=== PATIENT | female | born 1950 | race Caucasian/White ===

== ENCOUNTER 2024-10-18 06:02 | Day surgery (SDC) | payer MEDICARE, OTHER ==
[2024-10-18] MEDS: Lactated Ringers 1,000 ML IV SCH (06:36)
[2024-10-18 06:54] VITALS: RESP 16
[2024-10-18 07:41] LABS: ANION GAP 13.9 MEQ/L (5-15); Calcium 9.6 mg/dL (8.4-10.2); Creatinine 1 0.72 mg/dL (0.52-1.04); EST GLOMERULAR FILTRATION RATE 86.6 ML/MIN; Potassium 3.9 mmol/L (3.5-5.1)
[2024-10-18] MEDS ORDERED: propofoL IV ONE ×2 (07:57→08:25)
[2024-10-18 09:25] VITALS: BP 138/75; PULSE 67; TEMP 97.2; O2SAT 96
--- NOTE | 2024-10-19 13:23 | OP ---
SURGERY DATE/TIME: 10/18/2024 [id number] PROCEDURE PERFORMED: Colonoscopy. PREOPERATIVE DIAGNOSIS: Screening colonoscopy. POSTOPERATIVE DIAGNOSES: 1) Colon polyps x2. 2) Diverticulosis. ANESTHESIA: MAC by Adán Brandt CRNA. ESTIMATED BLOOD LOSS: Minimal. SPECIMENS: Two hot forceps polypectomies, one from the sigmoid colon and one from the rectum. DESCRIPTION OF PROCEDURE: After informed written consent was obtained, the patient was taken to the endoscopy suite. She was placed in the left lateral decubitus position, and anesthesia was titrated to the desired level of consciousness. Digital rectal exam showed external hemorrhoids. No internal lesions. Normal sphincter tone. Scope was inserted into the rectum, and sequentially, the entire colonic mucosa was traversed. The level of the cecum was reached and verified under direct visualization of the ileocecal valve. Upon withdrawal, careful mucosal inspection revealed no gross abnormalities other than diffuse diverticulosis. In the distal sigmoid colon, there was a small sessile polyp which was grasped with a forceps, cauterized, and removed in its entirety. There was another small sessile polyp in the rectum which was likewise removed with hot forceps with good hemostasis. Retroflexion showed no internal lesions. Scope was removed. The patient was transferred to the recovery room in good condition. She will follow up in 1 week for pathology report.
== END 2024-10-18 09:35 | disposition home or self-care (01) ==
LOC: SDC 06:02
PROVIDERS: ATTEND Family Medicine
DX: Z12.11 Encounter for screening for malignant neoplasm of colon (principal); K63.5 Polyp of colon; K57.30 Diverticulosis of large intestine without perforation or abscess without bleeding; K64.4 Residual hemorrhoidal skin tags
CPT/HCPCS: 36415; 80048; 93005; J2704